=== PATIENT | male | born 1975 | race Caucasian/White ===

== ENCOUNTER 2019-01-15 16:19 | Emergency (ER) | payer BC ==
[2019-01-15 16:52] VITALS: BP 144/86
--- NOTE | 2019-01-15 17:21 | UC ---
Throat Pain/Nasal Claudio HPI - HPI Summary HPI Summary: 43-year-old male comes in with a chief complaint of his uvula being enlarged for the last 2 days. Also has a headache. Does have some pain with swallowing but he's been able to eat and drink. No complaint of any stiff neck or shortness of breath. - History of Current Complaint Chief Complaint: UCGeneralIllness Stated Complaint: SORE THROAT Time Seen by Provider: 01/15/19 16:44 Pain Intensity: 0 - Allergies/Home Medications Allergies/Adverse Reactions: Allergies Allergy/AdvReac Type Severity Reaction Status Date / Time No Known Allergies Allergy Verified 01/15/19 16:52 Home Medications: Home Medications Omeprazole 20 mg PO DAILY 01/15/19 [History Confirmed 01/15/19] PMH/Surg Hx/FS Hx/Imm Hx Previously Healthy: Yes - Surgical History Surgical History: None - Family History Known Family History: Positive: Non-Contributory - Social History Alcohol Use: Occasionally Substance Use Type: None Smoking Status (MU): Never Smoked Tobacco Review of Systems All Other Systems Reviewed And Are Negative: Yes Constitutional: Positive: Other - SEE HPI Skin: Positive: Negative Eyes: Positive: Negative ENT: Positive: Sore Throat Respiratory: Positive: Negative Cardiovascular: Positive: Negative Gastrointestinal: Positive: Negative Motor: Positive: Negative Neurovascular: Positive: Negative Musculoskeletal: Positive: Negative Neurological: Positive: Headache Psychological: Positive: Negative Is Patient Immunocompromised?: No Physical Exam Triage Information Reviewed: Yes Appearance: Well-Appearing, No Pain Distress, Well-Nourished Vital Signs: Initial Vital Signs Temp 98.4 F 01/15/19 16:47 Pulse 86 01/15/19 16:47 Resp 16 01/15/19 16:47 BP 144/86 01/15/19 16:47 Pulse Ox 100 01/15/19 16:47 Vital Signs Reviewed: Yes Eye Exam: Normal Eyes: Positive: Conjunctiva Clear ENT: Positive: TMs normal, Uvula midline - Uvula does not appear to be enlarged in diameter however its length does drop down to touch the back of the patient' s throat which the patient reports is not normal for him. There is some erythema in the posterior pharynx. Oropharynx is open. Voice is normal.. Negative: Tonsillar swelling, Tonsillar exudate, Muffled voice, Hoarse voice Neck: Positive: Supple Respiratory: Positive: Lungs clear, Normal breath sounds, No respiratory distress Cardiovascular: Positive: RRR Musculoskeletal: Positive: Strength Intact, ROM Intact Neurological: Positive: Alert, Muscle Tone Normal Psychological: Positive: Age Appropriate Behavior Skin Exam: Normal Throat Pain/Nasal Course/Dx - Course Course Of Treatment: Strep was negative however to to the airway compromise potential for uvulitis I am treating with antibiotic and steroids. We discussed that if anything worse. Difficulty breathing or swallowing or felt ill he needs to get reevaluated again right away in the emergency department. If he does not completely improved he can follow up with his primary care doctor or ear nose and throat therefore I gave him the names of all the local ENTs. [facility]. - Differential Dx/Diagnosis Provider Diagnosis: Uvulitis Discharge ED - Sign-Out/Discharge Documenting (check all that apply): Patient Departure All imaging exams completed and their final reports reviewed: No Studies - Discharge Plan Condition: Stable Disposition: HOME Prescriptions: Amoxicillin PO (*) [Amoxicillin 875 MG (*)] 875 mg PO BID #20 tab predniSONE TAB* [Deltasone 20 MG TAB*] 40 mg PO DAILY #10 tab Patient Education Materials: Uvulitis (ED) Referrals: Pema Presley [Primary Care Provider] - Thomas Bernal MD [Medical Doctor] - Sancho Parker MD [Medical Doctor] - Keny Haines MD [Medical Doctor] - Additional Instructions: FOLLOW UP WITH ENT IF NOT COMPLETELY IMPROVED. GO TO THE EMERGENCY DEPARTMENT IF WORSE; DIFFICULTY SWALLOWING OR BREATHING, YOU FEEL ILL OR ANY QUESTIONS OR CONCERNS. - Billing Disposition and Condition Condition: STABLE Disposition: Home
== END 2019-01-15 17:28 | disposition home or self-care (01) ==
LOC: UCCORT 16:19
DX: K12.2 Cellulitis and abscess of mouth (principal)
CPT/HCPCS: 87651; 99202; G0463

== ENCOUNTER 2019-04-26 11:59 | Emergency (ER) | payer BC ==
[2019-04-26 12:31] VITALS: BP 138/90
--- NOTE | 2019-04-26 12:42 | UC ---
Abdominal Pain Male HPI - HPI Summary HPI Summary: nausea / vomiting x 2 days vomiting up to 3 x per day , abdominal crams pain is 3 out 10 , worse with eating, better with npo diarrhea 2 x per day feeling better today , needs a return back to work note no fever, no chills, no cold symptoms - History of Current Complaint Chief Complaint: UCGI Stated Complaint: NAUSEA Time Seen by Provider: 04/26/19 12:24 Hx Obtained From: Patient Onset/Duration: Gradual Onset, Lasting Days - 3, Resolved Timing: Constant Severity Initially: Moderate Severity Currently: Mild Pain Intensity: 0 Location: Diffuse Radiates: No Character: Cramping Aggravating Factor(s): Food Alleviating Factor(s): Nothing Associated Signs And Symptoms: Positive: Nausea, Vomiting, Diarrhea. Negative: Fever, Cough, Chest Pain, Dizzy, Back Pain, Constipation, Blood in Stool, Urinary Symptoms, Decreased Appetite - Allergies/Home Medications Allergies/Adverse Reactions: Allergies Allergy/AdvReac Type Severity Reaction Status Date / Time No Known Allergies Allergy Verified 04/26/19 12:27 Home Medications: Home Medications Omeprazole 20 mg PO DAILY 01/15/19 [History Confirmed 04/26/19] PMH/Surg Hx/FS Hx/Imm Hx Previously Healthy: Yes - Surgical History Surgical History: None - Family History Known Family History: Positive: Non-Contributory - Social History Alcohol Use: Occasionally Substance Use Type: None Smoking Status (MU): Never Smoked Tobacco Review of Systems All Other Systems Reviewed And Are Negative: Yes Constitutional: Positive: Negative Skin: Positive: Negative Eyes: Positive: Negative ENT: Positive: Negative Respiratory: Positive: Negative Cardiovascular: Positive: Negative Gastrointestinal: Positive: Abdominal Pain, Vomiting, Diarrhea, Nausea Genitourinary: Positive: Negative Is Patient Immunocompromised?: No Physical Exam Triage Information Reviewed: Yes Appearance: Well-Appearing, No Pain Distress, Well-Nourished Vital Signs: Initial Vital Signs Temp 98.6 F 04/26/19 12:22 Pulse 105 04/26/19 12:22 Resp 16 04/26/19 12:22 BP 138/90 04/26/19 12:22 Pulse Ox 100 04/26/19 12:22 Vital Signs Reviewed: Yes Eyes: Positive: Conjunctiva Clear ENT: Positive: Normal ENT inspection, Hearing grossly normal, Pharynx normal Neck exam: Normal Neck: Positive: 1 Respiratory Exam: Normal Respiratory: Positive: Chest non-tender, Lungs clear, Normal breath sounds, No respiratory distress Cardiovascular Exam: Normal Cardiovascular: Positive: RRR, No Murmur, Pulses Normal Abdominal Exam: Normal Abdomen Description: Positive: Nontender, No Organomegaly, Soft. Negative: CVA Tenderness (R), CVA Tenderness (L), Distended, Guarding Bowel Sounds: Positive: Present Skin Exam: Normal Abd Pain Male Course/Dx - Differential Dx/Clinical Impression Provider Diagnosis: Gastroenteritis Discharge ED - Sign-Out/Discharge Documenting (check all that apply): Patient Departure All imaging exams completed and their final reports reviewed: No Studies - Discharge Plan Condition: Stable Disposition: HOME Patient Education Materials: Viral Syndrome (ED) Forms: *Work Release Referrals: Pema Presley [Primary Care Provider] - If Needed - Billing Disposition and Condition Condition: STABLE Disposition: Home
== END 2019-04-26 12:41 | disposition home or self-care (01) ==
LOC: UCCORT 11:59
DX: K52.9 Noninfective gastroenteritis and colitis, unspecified (principal)
CPT/HCPCS: 99211; G0463

== ENCOUNTER 2019-05-31 16:29 | Emergency (ER) | payer BC, OTHER ==
[2019-05-31 17:01] VITALS: BP 118/94
--- NOTE | 2019-05-31 17:22 | UC ---
Respiratory Complaint HPI - HPI Summary HPI Summary: 43 yo male with 2-3 day hx of chest congestion and mild fatigue noted to have temp 100.1 at work yesterday works at [employer] desires COVID testing - History of Current Complaint Chief Complaint: UCRespiratory Stated Complaint: CONGESTION Time Seen by Provider: 05/31/19 16:31 Hx Obtained From: Patient Onset/Duration: Gradual Onset Timing: Constant Severity Initially: Mild Severity Currently: Mild Pain Intensity: 0 Pain Scale Used: 0-10 Numeric Character: Cough: Nonproductive Aggravating Factors: Nothing Alleviating Factors: Nothing Associated Signs And Symptoms: Positive: Fever - low grade - Allergies/Home Medications Allergies/Adverse Reactions: Allergies Allergy/AdvReac Type Severity Reaction Status Date / Time No Known Allergies Allergy Verified 05/31/19 16:36 Home Medications: Home Medications Omeprazole 20 mg PO DAILY 01/15/19 [History Confirmed 05/31/19] PMH/Surg Hx/FS Hx/Imm Hx Previously Healthy: Yes - Surgical History Surgical History: None - Family History Known Family History: Positive: Hypertension, Non-Contributory - Social History Alcohol Use: Occasionally Substance Use Type: None Smoking Status (MU): Never Smoked Tobacco Review of Systems All Other Systems Reviewed And Are Negative: Yes Constitutional: Positive: Fever, Fatigue Skin: Positive: Negative Eyes: Positive: Negative ENT: Positive: Negative Respiratory: Positive: Cough - rare Cardiovascular: Positive: Negative, Palpitations Gastrointestinal: Positive: Negative Genitourinary: Positive: Negative Motor: Positive: Negative Neurovascular: Positive: Negative Musculoskeletal: Positive: Negative Neurological/Mental Status: Positive: Negative Psychological: Positive: Negative Physical Exam Triage Information Reviewed: Yes Appearance: Well-Appearing, No Pain Distress, Well-Nourished Vital Signs: Initial Vital Signs Temp 98.1 F 05/31/19 16:37 Pulse 88 05/31/19 16:37 Resp 16 05/31/19 16:37 BP 118/94 05/31/19 16:37 Pulse Ox 99 05/31/19 16:37 Vital Signs Reviewed: Yes Eyes: Positive: Conjunctiva Clear ENT: Positive: Hearing grossly normal, Pharynx normal, TMs normal. Negative: Nasal congestion, Nasal drainage, Trismus, Muffled voice, Hoarse voice Dental Exam: Normal Neck: Positive: Supple, Nontender, No Lymphadenopathy Respiratory: Positive: Lungs clear, Normal breath sounds, No respiratory distress Cardiovascular: Positive: RRR, No Murmur Musculoskeletal: Positive: ROM Intact, No Edema Neurological: Positive: Alert Psychological Exam: Normal Skin Exam: Normal Respiratory Course/Dx - Differential Dx/Diagnosis Provider Diagnosis: Viral syndrome, Educated about COVID-19 virus infection Discharge ED - Sign-Out/Discharge Documenting (check all that apply): Patient Departure All imaging exams completed and their final reports reviewed: No Studies - Discharge Plan Condition: Stable Disposition: HOME Forms: COVID-19 Tested & Isolation Referrals: Pema Presley [Primary Care Provider] - If Needed - Billing Disposition and Condition Condition: STABLE Disposition: Home
== END 2019-05-31 17:43 | disposition home or self-care (01) ==
LOC: UCCORT 16:29
DX: B34.9 Viral infection, unspecified (principal); Z20.828 Contact with and (suspected) exposure to other viral communicable diseases
CPT/HCPCS: 87635; 99211; G0463; U0003